=== PATIENT | male | born 1985 | race Caucasian/White ===

== ENCOUNTER 2025-01-04 11:29 | Outpatient (AMB) | payer OTHER, SELFPAY ==
--- NOTE | 2025-01-04 11:46 | A.OFFVIS_ITS ---
Vital Signs 01/04/25 11:47 Height 6 ft 2 in Weight 260 lb BMI 33.4 BP 118/64 Blood Pressure Location Rt brachial Position Sitting Pulse 83 Pulse Source Pulse Oximeter Pulse Oximetry (%) 98 Oxygen Delivery Method Room Air Intake Visit Reasons: ENP - Snoring-LVM Intake Note: Patient presents [employer] Snoring. Daytime fatigue with sleepiness, snoring. No witnessed apnea/gasping. Snoring as went down since losing weight. Goes to bed at 10:30pm and wakes up at 5:30-6am. Sleeps through the night. No naps/headaches. No history of sleep studies. Accompanied by: Self / Same As Patient Allergies No Known Allergies (No Known Allergies*) Allergy (Verified 01/04/25 11:53) HPI Comments Details: 45 year old male is referred to us by his pcp for an evaluation of JAMAR. He works in construction and [employer] and has been chronically fatigued despite losing over 100lbs over the course of 6months on Zepbound. He had a sliding hernia and surgery, this improved symptoms of acid reflux. He goes to bed at 10pm and wakes up at 6am.He denies snoring, gasping for air, bruxism, clenching of jaw and morning headaches. He continues to exercise daily, has completely changed his diet and lifestyle. His mood, and memory are stable. Denies anxiety, depression, panic attacks or forgetfulness. He forget names. He denies symptoms of RLS, numbness, tingling, pins, and needles. Denies smoking tobacco, alcohol, MJ use, and or edibles. Mom passed passed at 53 due to some Environmental Toxins at [facility], however he does not know specifics. Denies fh h/o stroke, seizures, [place] and movement disorders. [facility] Medical History Dizziness GERD (gastroesophageal reflux disease) Generalized anxiety disorder Obesity Adenomatous polyp of colon Family History Mother Cancer Social History Alcohol intake: never Patient Tobacco Use Status: Former Tobacco user e-Cigarette/Vaping Use: Never Used Physical Exam Vital Signs: Last Vital Signs Pulse 83 01/04/25 11:47 BP 118/64 01/04/25 11:47 Pulse Ox 98 01/04/25 11:47 Oxygen Delivery Method Room Air 01/04/25 11:47 BMI result Body Mass Index 33.4 Const General: cooperative, comfortable and no acute distress Nutritional Appearance: average body habitus Orientation/consciousness: patient oriented x3 HEENT Face and sinus: Yes face symmetric Teeth and gingiva: other (mallampti score is 2) Throat: Yes uvula midline Eyes Pupils: Equal, round and reactive pupils present Neck Other: pain on lateral rotation to the right Neck: Yes full ROM Resp Effort & Inspection: normal respiratory effort and able to speak in complete sentences Neuro General: patient oriented x3 and moves all extremities Cranial nerves: Yes Equal, round and reactive pupils present, Yes Normal accommodation reflex present, Yes Nystagmus not present, Yes Normal facial strength present, Yes Midline tongue present, Yes Ability to bilaterally rotate head present and Yes Ability to bilaterally elevate shoulders present Cognition (Neuro): normal cognition Gait exam (Neuro): Normal gait present Motor exam (neuro): 5/5 motor strength present throughout and Normal motor muscle tone present throughout Psych Appearance: grossly normal Attitude: cooperative Thought process: Normal thought process present Insight: Good insight present (Psych) Assessment & Plan Assessment & Plan (1) Excessive daytime sleepiness: Code(s): G47.19 - Other hypersomnia Category: Medical (2) Chronic fatigue: Code(s): R53.82 - Chronic fatigue, unspecified Category: Medical Plan HST r/o jamar Labs r/o deficiencies, will request from pcp in [facility] Dr. Gage's office F/U in 3 months. Orders: Orders RT home sleep study Today G47.19 - Other hypersomnia Patient Instructions: Please complete the following fasting labs to rule out deficiencies. CBC/CMP/ B12/ Vit D/ TSH/ Homocysteine and MMA/ Ferritin. Sleep Hygiene provided: set a scheduled bedtime and wake time to help regulate the circadian rhythm and balance the release of pituitary hormones. Sleep in a dark room, temperatures below 68 degrees, and no devices n bed. Limit caffeinated products 6 hours prior to bed, and limit fluids 2-4 hours prior to bed. Gentle night yoga, diffusing essential oils, and playing soft music can be relaxing. Coding Level of Care Code New Pt Level 4 (02620) Diagnoses Excessive daytime sleepiness G47.19 Chronic fatigue R53.82 Sleep Questionnaire Difficulty falling asleep: No Difficulty staying asleep?: No Number of arousals: 0 Snoring: No Witnessed apneas: No Gasping arousals: No Nocturia: No GERD: No Vivid dreams: No Acting out dreams: No Abnormal behavior in sleep: No Abnormal movements in sleep: No Morning headaches: No Excessive daytime sleepiness: No Daytime naps: No Restless legs: No Hallucinations: No Sleep paralysis: No Drop attacks: No Sleep Study: No CPAP: No
[2025-01-04 11:47] VITALS: BP 118/64; PULSE 83; O2SAT 98; BMI 33.4
--- OUTSIDE RECORDS SUMMARY | 2025-01-04 13:53 | XMS_ITS | Encounter Summary ---
Author Organization [facility] Address [address] [employer] [facility] [address] [place] [address] Phone Care Team Providers Care Generation Mechanic Helper Name Role Phone Debra Selby Dawson ASSOCIATE PASTOR Unavailable corie Janis Lind PA-C Primary Care Provider [phone] Davida Godoy NP Primary Care Provider +- [phone] Encounter Details Date Type Department Care Team (Late st Contact Info) Description 09/06/2023 Procedure Pass [facility] Endoscopy Admitting Dept Virtual Department [address] [place] [address] Social History Tobacco Use Types Packs/Day Years Used Date Smoking Tobacco: Former Cigarettes Q uit: 02/28/2003 Smokeless Tobacco: Never Comments:Pt reported quit sm oking when this illness started in June 2022. Alcohol Use Standard Drinks/Week Comments Not Currently 0 (1 standard drink = 0.6 oz pure alcohol) Pt reported stopped drinking 4 years ago. Education Answer Date Recorded Are you interested in more education? Not on renée e 06/25/2022 Are you concerned about learning? Not on file 06/25/2022 No 06/25/2022 No 06/25/2022 Digital Access Answer Date Recorded No 07/26/2022 No 07/26/2022 Reliable internet access at home? Not on file 07/26/2022 Device with a working camera? Not on file Intimate Partner Violence Answer Date R ecorded Denied Basic Needs Not on file 03/07/2023 In the past 12 months have y ou been in a relationship with a person who hurts, threatens, or tries to control you? No 03/07/2023 Worried food would run out Not on file 03/07 In the past 12 months have y ou been in a relationship with a person who hurts, threatens, or tries to control you? No 03/07/2023 Education Answer Date Recorded What is the highest level of school you have completed or the highest degree you have received? High school graduate 11/02/2022 Sex and Gender Information Value Date Recorded Sex Assigned at Male 03/07/2017 9:38 AM EST Legal Sex Male 9:17 PM EDT Gender Identity Male 04/25/2017 4:37 PM EST Sexual Orientation Straight 04/20/2018 9: 43 PM EST documented as of this encounter Plan of Treatment Not on file documented as of this encounter Visit Diagnoses Not on filedocumented in this encounter Additional Health Concerns Assessment Noted Time PHQ-9 Depression Total Score: 11 023 2:38 PM EDT PHQ-2 Depression Total Score: 4 11/16/19 23 2:38 PM EDT documented as of this encounter Care Teams Generation Mechanic Helper Relationship Specialty Start Date End Date Janis Lind PA-C [address] [place] [address] PCP - General Physician Room Service Associate 12/22/22 09/29/23 Davida Godoy NP [address] [place] [address] PCP - General Nurse Practitioner 09/30/23 Debra Selby LCSW [address] [place] [address] PHCM Director Of Oncology 10/15/22 09/29/23 documented as of this encounter Additional Source Comments The information contained in this document represents components of the legal health record. It is not the complete legal health record.[facility]
--- OUTSIDE RECORDS SUMMARY | 2025-01-04 13:53 | XMS_ITS | Clinical Summary ---
Author Organization [facility] Address [address] [place] [address] Care Team Providers Care Parent Coach Name Role Phone Susan Baugh MD Primary Care Provider [phone] Allergies No known active allergies Medications OMEprazole (PriLOSEC) 20 MG capsule Take 1 capsule (20 mg total) by mouth every morning before breakfast. Active predniSONE (DELTASONE) 10 MG tabletIndication s:Vestibular neuronitis, unspecified laterality Take 40 mg (= 4 tablets) by mouth daily for 2 days, then 30 mg (= 3 tablets) daily for 2 days, then 20 mg (= 2 tablets) daily for 2 days, then 10 mg (= 1 tablet) daily for 2 days. Take with food. Do not start before August 22, 2022. 20 tablet 08/22/2022 Active meclizine (ANTIVERT) 25 MG tabletIndication s:Vestibular neuronitis, unspecified laterality Take 1 tablet (25 mg total) by mouth 3 (three) times a day as needed for dizziness. 30 tablet 1 08/21/2022 Active metoPROLOL TARTRATE (LOPRESSOR) 25 MG tabletIndication s:PVC (premature ventricular contraction) Take 0.5 tablets (12.5 mg total) by mouth daily. 15 tablet 08/21/2022 Active Active Problems Problem Noted Date Diagnosed Date Gastroesophageal reflux disease without esophagi tis 08/19/2022 Complaints of weakness of lower extremity 2022 Social History Tobacco Use Types Packs/Day Years Used Date Smoking Tobacco: Every Day Cigarettes Smokeless Tobacco: Never Tobacco Cessation:Ready to Q uit: Not Asked; Counseling Given: Not Answered Alcohol Use Standard Drinks/Week Comments Never 0 (1 standard drink = 0.6 oz pur e alcohol) AUDIT-C Answer Date Recorded Q1: How often do you have a drink containing alcohol? Never 08/19/2022 Q2: How many drinks containi ng alcohol do you have on a typical day when you are drinking? Patient does not drink Q3: How often do you have si x or more drinks on one occasion? Never 08/19/2022 Sex and Gender Information Value Date Recorded Sex Assigned at Male 08/19/2022 9:25 AM EDT Legal Sex Male 12:18 AM EDT Gender Identity Male 08/19/2022 9:25 AM EDT Sexual Orientation Heterosexual (straight) 08/19 9:25 AM EDT Last Filed Vital Signs Vital Sign Reading Time Taken Comments Blood Pressure 120/72 08/21/2022 7:56 AM EDT Pulse 68 08/21/2022 7:56 AM EDT Temperature 36.6 C (97.9 F) 08/21/2022 7:56 AM EDT Respiratory Rate 18 08/21/2022 7:56 AM EDT Oxygen Saturation 97% 08/21/2022 7:56 AM EDT Inhaled Oxygen Concentration - - Weight 134 kg (295 lb) 08/19/2022 3:29 AM EDT Height 190.5 cm (6' 3 ) 08/19/2022 3:29 AM EDT Body Mass Index 36.87 08/19/2022 3:29 AM EDT Plan of Treatment Health Maintenance Due Date Last Done Comments Hepatitis C Virus Screening 1983 DTaP/Tdap/Td Vaccines (1 - Tdap) 2002 Hepatitis B Vaccines (1 of 3 - 19+ 3-dose series) 12/30 Pneumococcal Vaccine: Pediat deandra (0-5 Years) and At-Risk Patients (6 to 49 Years) (1 of 2 - PCV) 2002 Influenza Vaccine 09/28/2024 COVID-19 Vaccine (1 - season) 2024 HIV Screening Completed 08/19/2022 HPV Vaccines (No Doses Required) Completed Procedures Procedure Name Priority Date/Time Associated Diagnosis Comments HIV 1/2 AG/AB CMIA REFLEX TO CONFIRMATION Routine 08/19/2022 5:12 AM EDT from Last 3 Months or Most Recently Relevant to Health Maintenance Results * HIV 1/2 Ag/Ab CMIA Reflex to Confirmation (08/19/2022 5:12 AM EDT) HIV 1/2 Ag/Ab CMIA Nonreactive Nonreactive 08/19/2022 11:09 AM EDT [facility] Comment: Results show no evidence of infection by HIV 1/2. If clinically indicated, repeat CMIA or test by nucleic acid amplification. HIV 1/2 Antigen/Antibody CMIA reflex to confirmation AND HIV-1 RNA viral load recommended in patients who are taking or have recently taken PrEP. Blood specimen (specimen) Serum specimen / Unknown 08/19/2022 5:12 AM EDT 08/19/2022 5:32 AM EDT Winston Gipson MD LAB BLOOD ORDERABLES Final Resul t HOSPITAL LAB See Below [facility] [address] [employer] [place] [address] from Last 3 Months or Most Recently Relevant to Health Maintenance Insurance MEDICAID OUT OF STATE [facility] MEDICAID OUT OF STATE [facility] Advance Directives * Full Code (Latest Code Status on File) Date Activated Date Inactivated Comments 08/19/2022 4:10 AM Care Teams Parent Coach Relationship Specialty Start Date End Date Susan Baugh MD [address] [place], [place] [address] PCP - General 08/19/22
--- OUTSIDE RECORDS SUMMARY | 2025-01-04 13:53 | XMS_ITS | Encounter Summary ---
Author Organization [facility] Address [address] [facility] [address] [place] [address] Phone Care Team Providers Care Panel Monitor Name Role Phone Debra Selby Dawson ASSAULT BOAT [place] Unavailable corie Janis Lind PA-C Primary Care Provider [phone] Davida Godoy NP Primary Care Provider +- [phone] Encounter Details Date Type Department Care Team (Late st Contact Info) Description 03/08/2023 Procedure Pass [facility] Endoscopy Admitting Dept Virtual Department [address] [place] [address] Social History Tobacco Use Types Packs/Day Years [...] documented as of this encounter Care Teams Panel Monitor Relationship Specialty Start Date End Date Janis Lind PA-C [address] [place] [phone] PCP - General Physician Salesperson Used Cars 12/22/22 09/29/23 Davida Godoy NP [address] [place] [address] PCP - General Nurse Practitioner 09/30/23 Debra Selby LCSW [address] [place] [address] PHCM Bowl Sander 10/15/22 09/29/23 documented as of this encounter Additional Source Comments The information contained in this document represents components of the legal health record. It is not the complete legal health record.[facility]
--- OUTSIDE RECORDS SUMMARY | 2025-01-04 13:53 | XMS_ITS | Encounter Summary ---
Author Organization [facility] Address [address] [employer] [facility] [address] [place] [address] Phone Care Team Providers Care Slip Tender Name Role Phone Debra Selby Dawson MINIATURE SET BUILDER Unavailable corie Janis Lind PA-C Primary Care Provider [phone] Davida Godoy NP Primary Care Provider +- [phone] Encounter Details Date Type Department Care Team (Late st Contact Info) Description 09/07/2023 Procedure Pass [facility] Endoscopy Admitting Dept Virtual Department [address] [place] [address] Social History Tobacco Use Types Packs/Day Years [...] documented as of this encounter Care Teams Slip Tender Relationship Specialty Start Date End Date Janis Lind PA-C [address] [place] [address] PCP - General Physician Corporate Safety Coordinator 12/22/22 09/29/23 Davida Godoy NP [address] [place] [address] PCP - General Nurse Practitioner 09/30/23 Debra Selby LCSW [address] [place] [address] PHCM Senior Windows Engineer 10/15/22 09/29/23 documented as of this encounter Additional Source Comments The information contained in this document represents components of the legal health record. It is not the complete legal health record.[facility]
--- OUTSIDE RECORDS SUMMARY | 2025-01-04 13:53 | XMS_ITS | Encounter Summary ---
Author Organization [facility] Address [address] [facility] [address] [place] [address] Phone Care Team Providers Care Rag Boiler Name Role Phone Pcp, Unknown Primary Care Provider UnavailDebra Cornejo BIOINFORMATICS SPECIALIST Unavailable corie Saúl Elizalde Unavailable [email or web address] Janis Lind PA-C Primary Care Provider Mary Kay RN Unavailable Davida Godoy NP Primary Care Provider Encounter Details Date Type Department Care Team (Latest Contact Info) Description 12/15/2022 Transcribe Orders [facility] Phleb Radha [address] [phone] Radha Aldrich, PARK [address] [place], [place] [phone] [email or web address] Abnormal stools (Primary Dx); Abdominal pain, epigastric; Nausea Social History Tobacco Use Types Packs/Day Years [...] with a working camera? Not on file Education Answer Date Recorded What is the [...] on file documented as of this encounter Results * Iron and iron binding capacity (12/15/2022 1:57 PM EDT) IRON 68 45 - 160 ug/dL [facility] IRON BINDING CAPACITY 320 228 - 428 ug/dL [facility] TRANSFERRIN SATURAT. 21 20 - 55 % [facility] Blood 12/15/2022 1:57 PM EDT 12/15/2022 2:06 PM EDT Radha Aldrich [facility] LAB BLOOD BKR ORDERABLES F inal Result Performing Organization Address [facility]/ZIP Co de Phone Number [address] [address] * TSH (12/15/2022 1:57 PM EDT) TSH 2.41 0.27 - 4.20 uIU/mL [facility] Blood 12/15/2022 1:57 PM EDT 12/15/2022 2:06 PM EDT Radha Aldrich [facility] LAB BLOOD BKR ORDERABLES F inal Result Performing Organization Address City/[facility] [address] [facility]/ZIP Co de Phone Number [address] [address] * (ABNORMAL) C-Reactive Protein (12/15/2022 1:57 PM EDT) C REACTIVE PROTEIN 6.0(H) 0.0 - 4.0 mg/L [facility] Blood 12/15/2022 1:57 PM EDT 12/15/2022 2:06 PM EDT Radha Aldrich CNP LAB BLOOD BKR ORDERABLES F inal Result [address] [address] * (ABNORMAL) Comprehensive metabolic panel (12/15/2022 1:57 PM EDT) Pathologist [facility] SODIUM 139 133 - 146 mmol/L [facility] POTASSIUM 4.5 3.3 - 5.1 mmol/L [facility] CHLORIDE 102 96 - 108 mmol/L [facility] CO2 24 21 - 35 mmol/L [facility] BUN 11 6 - 19 mg/dL [facility] CREATININE 0.80 0.5 - 1.5 mg/dL [facility] GLUCOSE 94 70 - 99 mg/dL [facility] ALBUMIN 4.9(H) 3.9 - 4.8 g/dL [facility] TOTAL PROTEIN 7.5 6.5 - 8.0 g/dL [facility] CALCIUM 9.8 8.4 - 10.3 mg/dL [facility] ALKALINE PHOSPHATASE 66 39 - 117 U/L [facility] TOTAL BILIRUBIN 0.3 0.0 - 1.2 mg/dL [facility] AST 48(H) 0 - 37 U/L [facility] ALT 37 0 - 40 U/L [facility] GLOBULIN 2.6 1 - 4.8 g/dL [facility] EGFR 115 >59 mL/min/1.7 3m2 [facility] Comment:Estimated glomerular filtration rate calculated using the CKD-EPI refit equation. ANION GAP 18 10 - 20 mmol/L [facility] Blood 12/15/2022 1:57 PM EDT 12/15/2022 2:06 PM EDT Radha Aldrich DIRECTOR OF NEUROLOGY LAB BLOOD BKR ORDERABLES F inal Result [facility] [address] [place], [place] [phone] * CBC and differential (12/15/2022 1:57 PM EDT) WBC 7.69 4.00 - 11.00 K/uL [facility] RBC 4.95 4.23 - 5.82 M/uL [facility] HGB 15.2 13.4 - 17.5 g/dL [facility] HCT 44.4 37.0 - 51.0 % [facility] PLT 247 140 - 430 K/uL [facility] MCV 89.7 78.0 - 97.0 fL [facility] MCH 30.7 25.0 - 33.0 pg [facility] MCHC 34.2 32.0 - 36.0 g/dL [facility] RDW 12.6 11.0 - 15.0 % [facility] MPV 10.2 8.4 - 12.8 fl [facility] DIFF METHOD Auto [facility] NEUTS 51.8 43.0 - 75.0 % [facility] LYMPHS 38.2 18.2 - 47.4 % [facility] MONOS 6.9 4.00 - 11.00 % [facility] EOS 1.7 0.0 - 8.0 % [facility] BASOS 1.0 0.0 - 2.0 % [facility] Granulocytes, immature (%) 0.4 0.0 - 0.9 % [facility] ABSOLUTE NEUTS 3.98 1.80 - 7.70 K/uL [facility] ABSOLUTE LYMPHS 2.94 1.00 - 3.10 K/uL [facility] ABSOLUTE MONOS 0.53 0.20 - 0.80 K/uL [facility] ABSOLUTE EOS 0.13 0.00 - 0.80 K/uL [facility] ABSOLUTE BASOS 0.08 0.00 - 0.09 K/uL [facility] Granulocytes, immature 0.03 0.00 - 0.05 K/uL [facility] Blood 12/15/2022 1:57 PM EDT 12/15/2022 2:06 PM EDT Radha Aldrich [facility] LAB BLOOD BKR ORDERABLES F inal Result Performing Organization Address City/[facility] Co de Phone Number [address] [address] * Immunoglobulin A (12/15/2022 1:57 PM EDT) IgA 262 70 - 400 mg/dL [facility] Blood 12/15/2022 1:57 PM EDT 12/15/2022 2:06 PM EDT Radha Aldrich [facility] LAB BLOOD BKR ORDERABLES F inal Result Performing Organization Address [facility] Co de Phone Number [address] [address] * Tissue transglutaminase IgA (12/15/2022 1:57 PM EDT) TTG IGA ANTIBODY <1.2 <4.0 (Negative) U/mL [facility] Blood 12/15/2022 1:57 PM EDT 12/15/2022 2:07 PM EDT Radha Aldrich [facility] LAB BLOOD BKR ORDERABLES F inal Result Performing Organization Address [facility] Co de Phone Number [facility] [place] [address] documented in this encounter Visit Diagnoses Diagnosis Abnormal stools- Primary Abnormal feces Abdominal pain, epigastric Nausea Nausea alone documented in this encounter Additional Health Concerns Assessment Noted Time PHQ-9 Depression Total Score: 11 023 2:38 PM EDT PHQ-2 Depression Total Score: 4 11/16/19 23 2:38 PM EDT documented as of this encounter Care Teams Rag Boiler Relationship Specialty Start Date End Date Pcp, Unknown PCP - General 10/14/22 12/21/22 Janis Lind PA-C [address] [place] [address] [email or web address] PCP - General Physician Butt Presser 12/22/22 09/29/23 Davida Godoy NP [address] [place] [address] PCP - General Nurse Practitioner 09/30/23 Debra Selby LCSW [address] [place] [address] [email or web address] PHCM Bowling Ball Marker 10/15/22 09/29/23 Saúl Elizalde [address] [place] [address] [email or web address] PHCM Community Health Worker 11/02/22 01/12/23 Mary Kay, RN [address] [place] [address] [email or web address] PHCM Security Operations Center Operator 02/01/23 02/13/23 documented as of this encounter Additional Source Comments The information contained in this document represents components of the legal health record. It is not the complete legal health record.[facility]
--- OUTSIDE RECORDS SUMMARY | 2025-01-04 13:54 | XMS_ITS | Encounter Summary ---
Author Organization [facility] Address [address] [facility] [address] [place] [phone] Phone Care Team Providers Care Mail Manager Name Role Phone JaradShannan elliottbutch REBOLLARW Unavailable [email or web address] Janis Lind PA-C Primary Care Provider [phone] Davida Godoy NP Primary Care Provider Encounter Details Date Type Department Care Team (Latest Contact Info) Description 03/29/2023 Transcribe Orders Virtual Department [address] [place] [address] Radha Aldrich, [place] [address] [place] [phone] [email or web address] Epigastric pressure (Primary Dx); Nausea Social History Tobacco Use Types Packs/Day [...] documented as of this encounter Results * FL BARIUM SWALLOW ESOPHAGRAM DOUBLE CONTRAST (04/12/2023 11:40 AM EST) Anatomical Region Laterality Modality Chest Computed Radiogr aphy 04/12/2023 2:02 PM EST Impressions 04/12/2023 6:36 PM EST Small hiatal hernia. FLUOROSCOPY TIME: 1 minute 1 second NUMBER OF IMAGES: 170 ATTESTATION: I, Edson Parikh as teaching physician, have reviewed the images for this case and if necessary edited the report originally created by Matthew Weeks. Narrative 04/12/2023 6:36 PM EST BARIUM SWALLOW ESOPHAGRAM DOUBLE CONTRAST HISTORY: Epigastric pressure. COMPARISON: Upper GI endoscopy 03/08/2033. OPERATORS: Matthew Weeks SUPERVISING PHYSICIAN: Edson Parikh TECHNIQUE: Double contrast barium swallow examination was performed with Sodium Carbonate and Barium. FINDINGS: A preliminary lateral view of the neck demonstrates no acute osseous abnormality. ESOPHAGUS: Motility: Within normal limits. Mucosa: No gross mucosal pathology demonstrated fluoroscopically. Distensibility: Normal. GASTROESOPHAGEAL JUNCTION: Prolapse of gastric folds into the thoracic cavity elicited by a prone Valsalva maneuver suggestive of a small hiatal hernia. No evidence of a Schatzki's ring. TABLET: No impedance to the passage of a 13 mm barium tablet into the stomach. GASTROESOPHAGEAL REFLUX: None observed. Procedure Note Edson Parikh MD - 04/12/2023 BARIUM SWALLOW ESOPHAGRAM DOUBLE CONTRAST HISTORY: Epigastric pressure. COMPARISON: Upper GI endoscopy 03/08/2033. OPERATORS: Matthew Weeks SUPERVISING PHYSICIAN: Edson Parikh TECHNIQUE: Double contrast barium swallow examination was performed withSodium Carbonate and Barium. FINDINGS: A preliminary lateral view of the neck demonstrates no acute osseousabnormality. ESOPHAGUS: Motility: Within normal limits. Mucosa: No gross mucosal pathology demonstrated fluoroscopically. Distensibility: Normal. GASTROESOPHAGEAL JUNCTION: Prolapse of gastric folds into the thoraciccavity elicited by a prone Valsalva maneuver suggestive of a small hiatalhernia. No evidence of a Schatzki's ring. TABLET: No impedance to the passage of a 13 mm barium tablet into thestomach. GASTROESOPHAGEAL REFLUX: None observed. IMPRESSION: Small hiatal hernia. FLUOROSCOPY TIME: 1 minute 1 second NUMBER OF IMAGES: 170 ATTESTATION: I, Edson Parikh as teaching physician, have reviewed theimages for this case and if necessary edited the report originally createdby Matthew Weeks. Radha Gabriel Valdemar SUPERVISOR PHOTOENGRAVING IMG FL MISC Final Resu lt documented in this encounter Visit Diagnoses Diagnosis Epigastric pressure- Primary Nausea Nausea alone Epigastric pressure Nausea Nausea alone documented in this encounter Additional Health Concerns Assessment Noted Time PHQ-9 Depression Total Score: 11 023 2:38 PM EDT PHQ-2 Depression Total Score: 4 11/16/19 23 2:38 PM EDT documented as of this encounter Care Teams Mail Manager Relationship Specialty Start Date End Date Janis Lind PA-C [address] [place] [phone] [email or web address] PCP - General Physician Softlines Supervisor 12/22/22 09/29/23 Davida Godoy NP [address] [place] [phone] PCP - General Nurse Practitioner 09/30/23 Debra Selby LCSW [address] [place] [phone] [email or web address] PHCM Television Inspector 10/15/22 09/29/23 documented as of this encounter Additional Source Comments The information contained in this document represents components of the legal health record. It is not the complete legal health record.[facility]
--- OUTSIDE RECORDS SUMMARY | 2025-01-04 13:54 | XMS_ITS | Encounter Summary ---
Author Organization [facility] Address [address] [address] Phone Care Team Providers Care Spray Drier Operator Name Role Phone Pcp, Unknown Primary Care Provider Susan Corley MD Unavailable [phone] Pcp, Unknown Primary Care Provider Debra Buckner LCSW Unavailable corie Saúl Elizalde Unavailable [email or web address] Janis Lind PA-C Primary Care Provider Mary Kay RN Unavailable Davida Godoy NP Primary Care Provider [phone] Encounter Details Date Type Department Care Team (Late st Contact Info) Description 08/09/2022 Procedure Pass [facility], [address] [address] Social History Tobacco Use Types Packs/Day Years Used Date Smoking Tobacco: Every Day Cigarettes Smokeless Tobacco: Never Alcohol Use Standard Drinks/Week Comments No 0 (1 standard drink = 0.6 oz pur e alcohol) Education Answer Date Recorded Are you interested in more education? Not on renée e 06/25/2022 Are you concerned about learning? Not on file 06/25/2022 No 06/25/2022 No 06/25/2022 Digital Access Answer Date Recorded No 07/26/2022 No 07/26/2022 Reliable internet access at home? Not on file 07/26/2022 Device with a working camera? Not on file Sex and Gender Information Value Date Recorded Sex Assigned at Male 03/07/2017 9:38 AM EST Legal Sex Male 9:17 PM EDT Gender Identity Male 04/25/2017 4:37 PM EST Sexual Orientation Straight 04/20/2018 9: 43 PM EST documented as of this encounter Functional Status * Calculated C-SSRS Risk Score (Lifetime/Recent) Answer Date of Assessment Author No Risk Indicated 08/09/2022 8:00 PM EDT Angelic Viveros RN * [place] Suicide Severity Rating Scale (Screener/Recent Self-Report) Question Answer Date of Assessment Author 1. Wish to be (Past 1 Month) No 08/09/2022 8:00 PM EDT Chaparro Viveros RN 2. Non-Specific Active Suicidal Thoughts (Past 1 Month) No 08/09/2022 8:00 PM EDT Chaparro Viveros RN 6. Suicidal Behavior (Lifetime) No 08/09/2022 8:00 PM EDT Chaparro Viveros RN documented as of this encounter Plan of Treatment Not on file documented as of this encounter Visit Diagnoses Not on filedocumented in this encounter Additional Health Concerns Infection Onset Date Last Indicated Resolved Time CoV-Risk Comment:Neg covid 08/08/2022 08/08/2022 08/10/2022 6:37 AM E DT CoV-Risk 08/18/2022 08/18/2022 08/29/2022 1:21 AM EDT documented as of this encounter Care Teams Spray Drier Operator Relationship Specialty Start Date End Date Pcp, Unknown PCP - General 08/09/22 10/13/22 Pcp, Unknown PCP - General 10/14/22 12/21/22 Janis Lind PA-C [address] [place] [phone] [email or web address] PCP - General Physician Glass Mould Cleaner 12/22/22 09/29/23 Davida Godoy NP [address] [place] [phone] PCP - General Nurse Practitioner 09/30/23 Susan Baugh MD [address] [place] [address] Dr. [place], [place] [email or web address] Assigned Provider 10/03/22 12/04/22 Debra Selby LCSW [address] [place] [address] [email or web address] PHCM Chemotherapist 10/15/22 09/29/23 Saúl Elizalde [address] [place] [phone] [email or web address] PHCM Community Health Worker 11/02/22 01/12/23 Mary Kay, BERENICE [address] [place] [phone] PHCM [employer] Salesperson 02/01/23 02/13/23 documented as of this encounter Additional Source Comments The information contained in this document represents components of the legal health record. It is not the complete legal health record.[facility]
--- OUTSIDE RECORDS SUMMARY | 2025-01-04 13:54 | XMS_ITS | Encounter Summary ---
Author Organization [facility] Address [address] [facility] [address] [place] [address] Phone Care Team Providers Care Supervisor Sewing Room Name Role Phone Pcp, Unknown Primary Care Provider UnavailSusan Linn MD Unavailable [phone] Pcp, Unknown Primary Care Provider Debra BucknerW Unavailable corie Saúl Elizalde Unavailable [email or web address] Janis Lind PA-C Primary Care Provider Mary Kay RN Unavailable Davida Godoy NP Primary Care Provider Encounter Details Date Type Department Care Team (Late st Contact Info) Description 08/09/2022 Procedure Pass [facility], Ct Scan - [address] [address] Social History Tobacco Use Types Packs/Day Years [...] with a working camera? Not on file 05 / Sex and Gender Information Value Date Recorded [...] 8:00 PM EDT Angelic Viveros RN * [place] Suicide Severity Rating Scale (Screener/Recent Self-Report) Question [...] documented as of this encounter Care Teams Supervisor Sewing Room Relationship Specialty Start Date End Date Pcp, Unknown PCP - General 08/09/22 10/13/22 Pcp, Unknown PCP - General 10/14/22 12/21/22 Janis Lind PA-C [address] [place] [phone] [email or web address] PCP - General Physician Residential Installer 12/22/22 09/29/23 Davida Godoy NP [address] [place] [phone] PCP - General Nurse Practitioner 09/30/23 Susan Baugh MD [address] [place] [address] Dr. [place], [place] [email or web address] Insurance Assigned Provider 10/03/22 12/04/22 Debra Selby LCSW [address] [place] [address] [email or web address] PHCM Research Animal Facility Supervisor 10/15/22 09/29/23 Saúl Elizalde [address] [place] [phone] [email or web address] PHCM Community Health Worker 11/02/22 01/12/23 Mary Kay, BERENICE [address] [place] [phone] [email or web address] PHCM Airborne And Air Delivery Specialist 02/01/23 02/13/23 documented as of this encounter Additional Source Comments The information contained in this document represents components of the legal health record. It is not the complete legal health record.[facility]
--- OUTSIDE RECORDS SUMMARY | 2025-01-04 13:54 | XMS_ITS | Clinical Summary ---
Author Organization [facility] Address [address] [place] [address] Care Team Providers Care District Adviser Name Role Phone Janis Lind Primary Care Provider [phone] Surgical History Surgery Date Site/Laterality Comments OTHER SURGICAL HISTORY PROCEDURE: DENIES PREVIOUS SURGERY Medical History Medical History Date Comments Asthma, exercise induced DX:Asth ma, exercise induced; COMMENT: in childhood,no longer symptomatic Ataxia DX:Ataxia Polyp of nasal cavity DX:Polyp o f nasal cavity Lyme disease DX:Lyme disease Electrolyte imbalance DX:Electro lyte imbalance Symptomatic anemia DX:Symptomati c anemia Renal failure DX:Renal failure Social History Tobacco Use Types Packs/Day Years Used Date Smoking Tobacco: Former Cigarettes Q uit: 06/28/2022 Smokeless Tobacco: Never Alcohol Use Standard Drinks/Week Comments No 0 (1 standard drink = 0.6 oz pur e alcohol) Sex and Gender Information Value Date Recorded Sex Assigned at Not on file Legal Sex Male 8:18 PM EST Gender Identity Not on file Sexual Orientation Not on file Obstetrics History Last Filed Vital Signs Vital Sign Reading Time Taken Comments Blood Pressure 132/86 11/12/2022 8:15 AM EDT Sit ting L Arm Pulse 72 11/12/2022 8:15 AM EDT Temperature - - Respiratory Rate - - Oxygen Saturation - - Inhaled Oxygen Concentration - - Weight 144 kg (318 lb) 11/12/2022 8:15 AM EDT Height 190.5 cm (6' 3 ) 11/12/2022 8:15 AM EDT Body Mass Index 39.75 11/12/2022 8:15 AM EDT Plan of Treatment Health Maintenance Due Date Last Done Comments DTaP,Tdap,and Td Vaccines (1 - Tdap) 2002 Hepatitis B Vaccines (1 of 3 - 19+ 3-dose series) 2002 HPV Vaccines (1 - 3-dose SCD M series) 2010 Cholesterol Screening (Lipid Panel) 03/24/2023 HIV Screening 03/24/2023 Hepatitis C Screening 03/24/2023 Social Influencers of Health Screening 03/24/2023 Depression Screening 02/29/2024 COVID-19 Vaccine (1 - 2023-2 5 season) 2024 Influenza Vaccine (#1) 2024 RSV Immunization Adult Patie nts (1 - 1-dose 75+ series) 2058 HIB Vaccines Aged Out No longer eligi ble based on patient's age to complete this topic Hepatitis A Vaccines Aged Out No long er eligible based on patient's age to complete this topic IPV Vaccines Aged Out No longer eligi ble based on patient's age to complete this topic MMR Vaccines Aged Out No longer eligi ble based on patient's age to complete this topic Meningococcal ACWY Vaccine Aged Out N o longer eligible based on patient's age to complete this topic Meningococcal B Vaccine Aged Out No l onger eligible based on patient's age to complete this topic Pneumococcal Vaccine: Pediat rics (0 to 5 Years) and At-Risk Patients (6 to 49 Years) Aged Out No longer eligible b ased on patient's age to complete this topic RSV Immunization Patients Un natalie 20 months Aged Out No longer eligible b ased on patient's age to complete this topic Varicella Vaccines Aged Out No longer eligible based on patient's age to complete this topic Care Teams District Adviser Relationship Specialty Start Date End Date Janis Lind PA [address] [place] [phone] PCP - General 09/21/22
--- OUTSIDE RECORDS SUMMARY | 2025-01-04 13:54 | XMS_ITS | Clinical Summary ---
Author Organization [facility] Address [address] [facility] [address] [place] [phone] Phone Care Team Providers Care Leather Whitener Name Role Phone Davida Godoy NP Primary Care Provider [phone] Allergies No known active allergies Medications acetaminophen (TYLENOL) 500 MG tablet Take 1,000 mg by mouth every 8 (eight) hours as needed for pain (specific location in comments). Active docusate sodium (COLACE) 100 MG capsule Take 100 mg by mouth 2 (two) times a day. Active DULoxetine (CYMBALTA) 30 MG capsule TAKE 2 CAPS (60 MG) DAILY STARTING WEEK 2 IF TOLERATING MEDICATION WELL. 04/23/19 25 Active tiZANidine (ZANAFLEX) 4 MG tablet TAKE 1 TABLET BY MOUTH EVERY EVENING NEEDED SPASMS 06/20/19 25 Active cholecalciferol (VITAMIN D3) 25 MCG (1,000 unit) tablet Take 1,000 Units by mouth daily. Active multivit-mineral s/folic acid (MULTIVITAMIN GUMMIES ORAL) Take 2 Pieces by mouth daily. 2 gummies daily Active tirzepatide, weight loss, (ZEPBOUND) 15 mg/0.5 mL subcutaneous pen Inject 0.5 mL (15 mg total) under the skin every 7 days. 2 mL 12/18/19 25 Active tirzepatide, weight loss, (ZEPBOUND) 10 mg/0.5 mL subcutaneous pen Inject 0.5 mL (10 mg total) under the skin every 7 days. 2 mL 10/22/19 25 025 Discontinued tirzepatide, weight loss, (ZEPBOUND) 12.5 mg/0.5 mL subcutaneous pen Inject 0.5 mL (12.5 mg total) under the skin every 7 days. 2 mL 11/20/19 25 025 Discontinued Active Problems Problem Noted Date Diagnosed Date Hiatal hernia 07/17/2024 Mild binge-eating disorder 05/23/2024 Assessment & Plan (05/23/2024 4:12 PM EDT): Recommend he stop skipping meals as this will predispose him to binge behavior. Recommend GLP1RA Class 2 severe obesity with serious comorbidity and body mass index (BMI) of 35.0 to 35.9 in adult 05/23/2024 Overview (05/23/2024): WHO class 2, AACE 0 Prior AOM phentermine Assessment & Plan (10/24/2024 10:35 AM EDT): He is doing a great job with diet. Encouraged him to increase strength training to keep up with typical muscle mass loss seen with Zepbound. About to increase Zepbound to 10 mg. Will continue monthly check-in's over MyChart and follow-up in clinic in 3 months Assessment & Plan (07/17/2024 3:39 PM EDT): I want him to add more calories at mid day. Schedule appt w RD. Increase Zepbound to 5 mg at next visit. FU w herein 3 mos Assessment & Plan (05/23/2024 4:11 PM EDT): Pt was educated on the pathophysiology of obesity, which is a chronic, relapsing, often progressive neuroendocrine disease with behavioral components. We discussed treatment approaches including lifestyle changes, pharmacotherapy & bariatric surgery. We discussed their personal treatment goals. We discussed targeting a weight loss goal of 5-10% over the next 6 months as this modest amount of weight loss has been shown to decrease blood pressure, insulin resistance, sleep apnea, liver inflammation, arthritic pain and improve dyslipidemia. I recommend the following labs as part of their initial evaluation, the results of which will direct further treatment recommendations: Fasting lipid, CMP, A1c, Vit D, CBC, fasting insulin Patient was given the initial meal plan and exercise recommendations. I recommend patient work with our dietitian, Silva Doran RD and have asked them to schedule an appt. I have recommended the following Anti-Obesity Medication: Tirzepatide They will start at 2.5 mg q week x 4 wk, then if tolerated we can titrate every 4 weeks The patient has completed > 6 months of efforts focused on dietary and lifestyle changes and has been unsuccessful in reaching their weight loss goals. I have explained that this medication decreases appetite & food cravings and increases feeling of fullness. I have reviewed the following possible side effects: Nausea, vomiting, constipation, gastroparesis, SBO, pancreatitis, gallstones, suicidal thoughts, diabetic retinopathy, optic neuropathy, low blood sugar and in rat studies an increased risk of medullary thyroid cancer and MEN2. This medication is not recommended in patients with a personal or family history of medullary thyroid cancer or multiple endocrine neoplasia 2A or 2B. We also discussed health insurance inflicted barriers to obtaining GLP1RA and possible need for prior authorization & appeal Mild asthma 03/08/2023 Gastroesophageal reflux disease without esophagi tis 03/08/2023 Anxiety 03/08/2023 Major depressive disorder 03/08/2023 Moderate mixed hyperlipidemia not requiring stat in therapy 03/08/2023 Ataxia 08/09/2022 Assessment & Plan (08/11/2022 12:57 PM EDT): Patient presented with 3-day history of dizziness and imbalance upon ambulation. Etiology is unclear at this time. Patient has nonspecific symptoms that does not fit into peripheral/central vertigo. Negative hints exam. No noticeable nystagmus or focal neurological deficits noted. Reflexes appears to be intact bilaterally. Patient also does not have any vision or auditory changes. ED spoke with neurology, differential includes acute polyneuropathy such as Guillain-Smith or other demyelinating disease needs to be ruled out. Low likelihood of metabolic causes, vestibular neuritis, or polypharmacy. Recommended further imaging with MRI brain with and without contrast which was negative. Feeling better at rest but after several minutes standing got severe dizziness again. -Patient be observed on telemetry -Continue neurochecks every 4 hours Will request a repeat neuro consult Resolved Problems Problem Noted Date Diagnosed Date Resolved Date Primary hypertension 03/08/2023 025 Encounters Date Type Department Care Team Description 11/26/2024 [facility] RISK SCORES SYSTEM GENERATED External System Generated Encounter [address] [place] [address] Unknown, Gabriela, 11/19/2024 Refill [facility] [address] [place] [address] Isha Medel CMA Medication Refill 10/24/2024 10:45 AM EDT Office Visit [facility] [address] [place] [address] Sofie Howell, PARK Class 2 severe obesity with serious comorbidity and body mass index (BMI) of 35.0 to 35.9 in adult, unspecified obesity type (Primary Dx) 10/19/2024 Refill [facility] [address] [place] [address] Juana Garcia RN Medication Refill from Last 3 Months Family History Medical History Relation Comments No Known Problems Father Cancer Mother Obesity Mother Relation Status Comments Child 1 Alive Child 2 Alive Daughter Alive Father Alive Maternal Aunt Alive Maternal Grandfather Maternal Grandmother Mother Paternal Grandfather Paternal Grandmother Social History Tobacco Use Types Packs/Day Years Used Date Smoking Tobacco: Former Cigarettes Q uit: 02/28/2003 Smokeless Tobacco: Never Tobacco Cessation:Counseling Given: Not Answered Comments:Pt reported quit smoking when this illness started in June 2022. [...] Orientation Straight 04/20/2018 9: 43 PM EST Last Filed Vital Signs Vital Sign Reading Time Taken Comments Blood Pressure 100/62 10/24/2024 10:19 AM EDT Pulse 86 10/24/2024 10:19 AM EDT Temperature 36.4 C (97.5 F) 10/24/2024 10:19 AM EDT Respiratory Rate 17 03/08/2023 12:34 PM EST Oxygen Saturation 97% 10/24/2024 10:19 AM EDT Inhaled Oxygen Concentration - - Weight 119.3 kg (263 lb) 12/17/2024 11:47 AM EDT Height 188 cm (6' 2.02 ) 11/19/2024 2:13 PM EDT Body Mass Index 33.75 11/19/2024 2:13 PM EDT Plan of Treatment Health Maintenance Due Date Last Done Comments Adult Td,Tdap Booster 1983 SMOKING Hx and SMOKELESS TOBACCO SCREENING 01/27/1996 HEPATITIS C SCREENING 2001 HIV ONE-TIME SCREENING (18-6 5 YEARS) 2001 PNEUMOCOCCAL VACCINES (0-49 years) (1 of 2 - PCV) 2002 DEPRESSION SCREENING 11/16/2023 11/15/2022, 11/15/2022 INFLUENZA VACCINE (#1) 2024 COVID-19 VACCINE (2 - 2024-2 6 season) 2024 05/22/2022 SCREENING FOR DIABETES 05/25/2027 , 05/24/2024 LIPID PANEL 05/24/2029 05/24/2024 HEPATITIS A VACCINES Aged Out No long er eligible based on patient's age to complete this topic HIB VACCINES Aged Out No longer eligi ble based on patient's age to complete this topic MENINGOCOCCAL VACCINES (ACWY) Aged Out No longer eligible based on patient's age to complete this topic MENINGOCOCCAL VACCINES (B) Aged Out N o longer eligible based on patient's age to complete this topic Medical Devices Not on file Procedures Procedure Name Priority Date/Time Associated Diagnosis Comments LIPID PANEL Routine 05/24/2024 11:31 AM EDT Class 2 severe obesity with serious comorbidity and body mass index (BMI) of 39.0 to 39.9 in adult, unspecified obesity type from Last 3 Months or Most Recently Relevant to Health Maintenance Results * (ABNORMAL) Lipid panel (05/24/2024 11:31 AM EDT) HDL 45 mg/dL [facility] Comment: Interpretation <40 mg/dL: Low HDL cholesterol (major risk factor for CHD) Greater than or equal to 60 mg/dL: High HDL cholesterol ( negative risk factor for CHD) HDL - cholesterol is affected by a number of factors, e.g. smoking, excerise, hormones, sex and age. CHOLESTEROL 205 0 - 240 mg/dL [facility] TRIGLYCERIDES 205(H) 30 - 160 mg/dL [facility] LDL 119 50 - 129 mg/dL [facility] Comment: LDL levels in terms of risk for coronary heart disease: <100 mg/dL: Optimal 100-129 mg/dL: Near or above optimal 130-159 mg/dL: Borderline high 160-189 mg/dL: High >190 mg/dL: Very High CARDIAC RISK RATIO 4.6 3.4 - 5.0 [facility] Blood 05/24/2024 11:3 1 AM EDT 05/24/2024 11:36 AM EDT us Sofie Howell DIRECTOR LABOR STANDARDS LAB BLOOD BKR ORDERABLES F inal Result [facility] [address] [place] [address] from Last 3 Months or Most Recently Relevant to Health Maintenance Insurance [facility] Advance Directives For more information, please contact: [phone] (9AM - 5PM [facility], Tuesday-Tuesday) Documents on File Type Date Recorded Patient Lecturer In Computer Science Expl anation Healthcare Proxy 08/13/2022 10:13 AM * Full Code (Latest Code Status on File) Date Activated Date Inactivated Comments 08/09/2022 8:35 PM Question Answer Comments Code Status Confirmed With: Patient Code Status Communicated To: Inpatient Attending Healthcare Agents on File Name Relationship Healthcare Agent Relationshi p Communication Rachel Gongora Life Partner .Primary Health Care Agent (Proxy form on file) Care Teams Leather Whitener Relationship Specialty Start Date End Date Davida Godoy NP [address] [place] [id number] PCP - General Nurse Practitioner 09/30/23 Additional Source Comments The information contained in this document represents components of the legal health record. It is not the complete legal health record.[facility]
== END 2025-01-04 12:49 | disposition home or self-care (01) ==
LOC: HO.HSMS 11:30
PROVIDERS: PCP Family Medicine; Visit Provider Physician Assistant Medical
DX: G47.19 Other hypersomnia (principal); R53.82 Chronic fatigue, unspecified
CPT/HCPCS: 99204